=== PATIENT | male | born 1980 | race Caucasian/White ===

== ENCOUNTER 2021-05-29 15:57 | Outpatient (CLI) | payer MEDICAID, OTHER ==
--- NOTE | 2021-05-29 10:44 | XRAY Report ---
PROCEDURE: Lumbar Spine 2 View INDICATIONS: LUMBAR BACK PX TECHNIQUE: 2 views of the lumbar spine were acquired. COMPARISON: None. FINDINGS: Bones: 5 [id number] vertebrae are present. There is mild straightening of normal lumbar lordos is. Mild degenerative endplate changes are noted throughout lumbar spine. No vertebral body compressi on fractures. No suspicious bony lesions. Soft tissues: Overlying bowel gas pattern is normal. No suspicious soft tissue calcifications. 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 No acute compression fracture or spondylolisthesis. Reviewed by: Michoacano Hudson MD on 05/29/2021 10:42 AM PDT Approved by: Michoacano Hudson MD on 05/29/2021 10:42 AM PDT Station ID: [id number]
== END 2021-05-29 15:58 ==
LOC: DI.N 15:57
PROVIDERS: ATTEND Physician Assistant Medical
DX: M51.36 Other intervertebral disc degeneration, lumbar region (principal)

== ENCOUNTER 2021-06-22 08:00 | Outpatient (CLI) | payer MEDICAID ==
[2021-06-22 21:00] LABS: NEISSERIA GONORRHOEAE DNA NEGATIVE (NEGATIVE)
[2021-06-22 21:02] LABS: CHLAMYDIA TRACHOMATIS DNA POSITIVE (NEGATIVE)
[2021-06-23 10:05] LABS: HEPATITIS C ANTIBODY NON-REACTIVE (NON-REACTIVE)
[2021-06-23 14:46] LABS: HIV AG/AB 4TH GEN NON-REACTIVE (NON-REACTIVE)
[2021-06-27 13:41] LABS: HSV 1 IGG TYPE SPECIFIC AB 44.7 index; HSV 2 IGG TYPE SPECIFIC AB 1.05 index
== END 2021-06-22 23:59 | disposition home or self-care (01) ==
LOC: LAB.N 08:00
PROVIDERS: ATTEND Family Medicine
DX: Z11.3 Encounter for screening for infections with a predominantly sexual mode of transmission (principal)
CPT/HCPCS: 81599; 86592; 86695; 86696; 86803; 87389; 87491; 87529; 87591; 87661